=== PATIENT | female | born 1940 | race Caucasian/White ===

== ENCOUNTER → 2017-03-28 | Outpatient (REF) | payer OTHER ==
[~2017-03-28] MED LIST: /AMLO25TA PO; /ASCO250TA PO; ACET-654 PO; ALBU17IN INH; ALDA25TA2 PO; ASCO10003 PO; ASPI81TA85 PO; BISO10TA PO; BISO5TAB5 PO; CHLO25TA3 PO; COLA100C3 PO; DEMA1TAB4 PO; EXCETAB81 PO; FISHCAP PO; GABA-279 PO; GLUC1500 PO; LEVA250T PO; LEVA500T PO; LISI-542 PO; MILKSUS PO; MULTCAP8 PO; PANT40TA2 PO; PERCOCET PO; PRED10TA PO; PRED20TA PO; PRED50TA PO; PRED5SOL2 PO; PROA1AER INH; SUCR1SS PO; TORS20TA2 PO; TRAZ50TA2 PO; VITA400C29 PO; VITA500055 PO; VITMTA PO; VOLT1GEL2 TD; XARE20TA PO; mycostatin powder TOP
[2017-03-28 15:29] LABS: MEAN CORPUSCULAR HEMOGLOBIN 28.5 pg (27.0-33.0); MEAN CORPUSCULAR HGB CONC 28.6 g/dl (32.0-36.5); MEAN CORPUSCULAR VOLUME 99.6 fl (80.0-96.0); RED CELL DISTRIBUTION WIDTH 14.1 % (11.5-14.5); WHITE BLOOD COUNT 10.3 K/mm3 (4.0-10.0)
[2017-03-28 16:05] LABS: ALBUMIN 3.4 GM/DL (3.2-5.2); ANION GAP 5 MEQ/L (8-16); BLOOD UREA NITROGEN 18 MG/DL (7-18); CALCIUM LEVEL 8.4 MG/DL (8.8-10.2); CARBON DIOXIDE LEVEL 44 MEQ/L (21-32); CHLORIDE LEVEL 93 MEQ/L (98-107); CREATININE FOR GFR 0.92 MG/DL (0.55-1.02); GLOMERULAR FILTRATION RATE > 60.0 (>39); GLUCOSE, FASTING 118 MG/DL (83-110); PHOSPHORUS LEVEL 3.3 MG/DL (2.5-4.9); POTASSIUM SERUM 4.2 MEQ/L (3.5-5.1); SODIUM LEVEL 142 MEQ/L (136-145)
== END ==
LOC: M LAB REF 15:12
PROVIDERS: ATTEND Physician Assistant
DX: I48.2 Chronic atrial fibrillation (principal); I50.42 Chronic combined systolic (congestive) and diastolic (congestive) heart failure; Z51.81 Encounter for therapeutic drug level monitoring; Z79.01 Long term (current) use of anticoagulants

== ENCOUNTER → 2017-05-23 | Outpatient (REF) | payer OTHER ==
[~2017-05-23] MED LIST changes: -ACET-654 PO; +ACET1TAB17 PO; +ACET650T3 PO; -COLA100C3 PO; +COLA100C5 PO; +ENSU-12 PO; +IRON65TA PO; +LEVA1TAB PO; +LEVA1TAB2 PO; -LEVA250T PO; -LEVA500T PO; +NORC1TAB4 PO; +OMEP20CA3 PO; +OMEP40CA2 PO; -PROA1AER INH; +PROAAER10 INH; +SERT25TA PO; +SUCR1SUS PO; +VENTAER INH; +VITA100072 PO
[2017-05-23 15:21] LABS: MEAN CORPUSCULAR HEMOGLOBIN 27.6 pg (27.0-33.0); MEAN CORPUSCULAR HGB CONC 28.6 g/dl (32.0-36.5); MEAN CORPUSCULAR VOLUME 96.4 fl (80.0-96.0); RED CELL DISTRIBUTION WIDTH 15.2 % (11.5-14.5); WHITE BLOOD COUNT 9.5 K/mm3 (4.0-10.0)
[2017-05-23 15:36] LABS: ALBUMIN 3.2 GM/DL (3.2-5.2); ALBUMIN/GLOBULIN RATIO 0.86 (1.00-1.93); ALKALINE PHOSPHATASE 89 U/L (45-117); ALT/SGPT 25 U/L (12-78); AST/SGOT 20 U/L (15-37); BILIRUBIN,TOTAL 0.5 MG/DL (0.2-1.0); BLOOD UREA NITROGEN 14 MG/DL (7-18); CALCIUM LEVEL 8.9 MG/DL (8.8-10.2); CHLORIDE LEVEL 90 MEQ/L (98-107); CREATININE FOR GFR 0.82 MG/DL (0.55-1.02); FERRITIN 37 NG/ML (8-252); GLOMERULAR FILTRATION RATE > 60.0 (>39); GLUCOSE, FASTING 104 MG/DL (83-110); PERCENT SATURATION 11.8 % (13.2-37.4); POTASSIUM SERUM 4.3 MEQ/L (3.5-5.1); SODIUM LEVEL 143 MEQ/L (136-145); TOTAL IRON BINDING CAPACITY 425 UG/DL (250-450); TOTAL PROTEIN 6.9 GM/DL (6.4-8.2)
[2017-05-23 15:55] LABS: CARBON DIOXIDE LEVEL 54 MEQ/L (21-32)
== END ==
LOC: M SFHCLACO 14:47
PROVIDERS: ATTEND Physician Assistant
DX: D64.9 Anemia, unspecified (principal); I10 Essential (primary) hypertension; I48.2 Chronic atrial fibrillation; R60.9 Edema, unspecified
CPT/HCPCS: 80053; 82728; 83550; 85027; G0463

== ENCOUNTER → 2017-05-30 | Outpatient (REF) | payer OTHER ==
[2017-05-30 15:18] LABS: MEAN CORPUSCULAR HGB CONC 28.7 g/dl (32.0-36.5); MEAN CORPUSCULAR VOLUME 97.6 fl (80.0-96.0); RED CELL DISTRIBUTION WIDTH 16.4 % (11.5-14.5); WHITE BLOOD COUNT 7.8 K/mm3 (4.0-10.0)
[2017-05-30 15:30] LABS: PERCENT SATURATION 14.7 % (13.2-37.4)
== END ==
LOC: M SFHCLACO 10:25
PROVIDERS: ATTEND Physician Assistant
DX: I10 Essential (primary) hypertension (principal); D64.9 Anemia, unspecified; Z68.42 Body mass index [BMI] 45.0-49.9, adult

== ENCOUNTER 2017-08-01 08:35 | Emergency (ER) | payer OTHER ==
[~2017-08-01] VITALS: Ht 167.6 cm; Wt 137.0 kg
[~2017-08-01 08:35] MED LIST changes: -ACET650T3 PO; -ENSU-12 PO; -IRON65TA PO; -NORC1TAB4 PO; -OMEP20CA3 PO; -OMEP40CA2 PO; -SERT25TA PO; -SUCR1SUS PO; -VENTAER INH; -VITA100072 PO
[2017-08-01] MEDS ORDERED: OMEP40CA2 PO (08:56)
[2017-08-01] MEDS ORDERED: XARE20TA PO (08:56)
--- NOTE | 2017-08-01 10:12 | REP ---
Noncontrast head CT: History: History of a fall. Patient on Xarelto. Comparison CT study: July 29, 2016. CT findings: Preliminary digital scale expert radiograph is unremarkable. Bone window settings demonstrate an intact bony calvarium. No skull fracture is seen. Visualized paranasal sinuses are clear. No intraorbital abnormality is appreciated. There is mild to moderate vascular calcification in the distal carotid arteries bilaterally unchanged. There is no evidence of intracranial hemorrhage. Huddleston-white differentiation pattern is normal above and below the tentorium. The previously noted left anterior capsule lacune is again seen with some volume averaging. No new infarct is seen. No mass, extra-axial fluid collection or midline shift is seen. Impression: Vascular calcification and some small vessel changes. Old lacunar infarct in the anterior limb of the left internal capsule. No acute intracranial abnormality. Signed by Ramana Workman MD 08/01/2017 03:49 P
--- NOTE | 2017-08-01 10:38 | REP ---
Lumbar spine five views: Comparison is the CT of the abdomen and pelvis dated 07/21/2016. There is mild scoliosis convex right, unchanged. There are bilateral total hip arthroplasties, unchanged. Vertebral body heights and alignment are normal. This is unchanged. There is advanced degenerative disc disease at multiple levels from L2 through S1. This is unchanged. There is no spondylolysis or spondylolisthesis. There is moderate facet osteoarthritis. The pedicles and sacroiliac articulations are unremarkable. Impression: Scoliosis. Multilevel degenerative disc disease. No compression deformity or listhesis. Signed by Pardeep High MD 08/01/2017 10:28 A
[2017-08-01 11:44] VITALS: BP 121/70
[2017-08-01 11:59] VITALS: O2SAT 95
== END 2017-08-01 12:00 | disposition home or self-care (01) ==
LOC: EDBD 08:35 → M ED 08:35
DX: S20.229A Contusion of unspecified back wall of thorax, initial encounter (principal); W01.198A Fall on same level from slipping, tripping and stumbling with subsequent striking against other object, initial encounter; Y92.89 Other specified places as the place of occurrence of the external cause; Y93.89 Activity, other specified; Y99.8 Other external cause status; R26.9 Unspecified abnormalities of gait and mobility; I48.91 Unspecified atrial fibrillation; I10 Essential (primary) hypertension; E66.9 Obesity, unspecified; Z79.899 Other long term (current) drug therapy

== ENCOUNTER → 2017-08-08 | Outpatient (REF) | payer OTHER ==
[~2017-08-08] MED LIST changes: +ACET650T3 PO; +ENSU-12 PO; +IRON65TA PO; +NORC1TAB4 PO; +OMEP20CA3 PO; +OMEP40CA2 PO; +SERT25TA PO; +SUCR1SUS PO; +VENTAER INH; +VITA100072 PO
[2017-08-08 15:08] LABS: MEAN CORPUSCULAR HEMOGLOBIN 29.1 pg (27.0-33.0); MEAN CORPUSCULAR VOLUME 107.6 fl (80.0-96.0); RED CELL DISTRIBUTION WIDTH 14.8 % (11.5-14.5); WHITE BLOOD COUNT 7.5 10^3/uL (4.0-10.0)
[2017-08-08 15:35] LABS: BLOOD UREA NITROGEN 14 MG/DL (7-18); CALCIUM LEVEL 9.3 MG/DL (8.8-10.2); CHLORIDE LEVEL 90 MEQ/L (98-107); CREATININE FOR GFR 0.71 MG/DL (0.55-1.02); GLOMERULAR FILTRATION RATE > 60.0 (>39); GLUCOSE, FASTING 103 MG/DL (83-110); SODIUM LEVEL 144 MEQ/L (136-145)
[2017-08-08 16:05] LABS: ANION GAP 2 MEQ/L (8-16); CARBON DIOXIDE LEVEL 52 MEQ/L (21-32)
== END ==
LOC: M SFHCLACO 09:09
PROVIDERS: ATTEND Physician Assistant
DX: D64.9 Anemia, unspecified (principal); R09.02 Hypoxemia

== ENCOUNTER 2017-09-13 13:44 | Inpatient (IN) | payer OTHER ==
[~2017-09-13] VITALS: Ht 167.6 cm; Wt 124.0 kg
[~2017-09-13 13:44] MED LIST changes: -ACET650T3 PO; -ENSU-12 PO; -IRON65TA PO; -NORC1TAB4 PO; -OMEP20CA3 PO; -SERT25TA PO; -SUCR1SUS PO; -VENTAER INH; -VITA100072 PO
[2017-09-13 14:49] LABS: BASO % 0.3 % (0.0-1.0); EOS % 0.5 % (0.0-3.0); IMMATURE GRANULOCYTE % 1.8 % (0-0); LYMPH # 0.6 10^3/uL (1.5-4.5); LYMPH % 7.8 % (24.0-44.0); MEAN CORPUSCULAR HEMOGLOBIN 29.9 pg (27.0-33.0); MEAN CORPUSCULAR HGB CONC 27.1 g/dl (32.0-36.5); MEAN CORPUSCULAR VOLUME 110.5 fl (80.0-96.0); MONO # 0.4 10^3/uL (0.0-0.8); MONO % 4.7 % (0.0-5.0); NEUTROPHILS # 6.7 10^3/uL (1.8-7.7); NEUTROPHILS % 84.9 % (36.0-66.0); PLATELET COUNT, AUTOMATED 143 10^3/uL (150-450); RED CELL DISTRIBUTION WIDTH 13.6 % (11.5-14.5); WHITE BLOOD COUNT 7.9 10^3/uL (4.0-10.0)
--- NOTE | 2017-09-13 15:14 | REP ---
PORTABLE CHEST: AP portable view of the chest is performed and compared to multiple prior exams, most recently 07/30/2016. There is cardiomegaly and vascular congestion. There may be a mild amount of diffuse interstitial edema. There is calcification and tortuosity of the thoracic aorta. The mediastinal silhouette is unchanged. Signed by Pardeep Huddleston MD 09/14/2017 07:25 P
[2017-09-13 15:20] LABS: ALBUMIN 3.2 GM/DL (3.2-5.2); ALBUMIN/GLOBULIN RATIO 0.84 (1.00-1.93); ALKALINE PHOSPHATASE 95 U/L (45-117); ALT/SGPT 23 U/L (12-78); AST/SGOT 19 U/L (7-37); BILIRUBIN,DIRECT 0.2 MG/DL (0.0-0.2); BILIRUBIN,TOTAL 0.4 MG/DL (0.2-1.0); BLOOD UREA NITROGEN 15 MG/DL (7-18); CALCIUM LEVEL 8.9 MG/DL (8.8-10.2); CHLORIDE LEVEL 88 MEQ/L (98-107); CREATININE FOR GFR 0.62 MG/DL (0.55-1.02); GLOMERULAR FILTRATION RATE > 60.0 (>39); GLUCOSE, FASTING 126 MG/DL (83-110); POTASSIUM SERUM 4.1 MEQ/L (3.5-5.1); SODIUM LEVEL 143 MEQ/L (136-145)
--- NOTE | 2017-09-13 15:29 | REP ---
CT Head without contrast HISTORY: Altered mental status COMPARISON: 08/01/2017 Areas of decreased attenuation are present in the periventricular white matter. This represents small-vessel ischemic disease. The previously noted small left internal capsule lacunar infarction is not seen. There is no intraparenchymal hemorrhage, acute infarct, mass or midline shift. The ventricular system is normal in appearance. The cortical sulci at the vertex are dilated consistent with minimal volume loss. There is no extra cerebral collection. There is no fracture. The visualized sinuses are clear. IMPRESSION: 1. Small vessel ischemic disease. 2. Minimal volume loss. Signed by Gordon Muhammad MD 09/13/2017 03:20 P
[2017-09-13 15:33] LABS: CARBON DIOXIDE LEVEL 58 MEQ/L (21-32)
[2017-09-13] MEDS ORDERED: FUROSEMIDE 40 MG/4 ML VIAL (J1940) IV ONE (16:00)
[2017-09-13] MEDS ORDERED: GABA-279 PO (16:19)
[2017-09-13] MEDS ORDERED: OMEP20CA3 PO (16:19)
[2017-09-13] MEDS ORDERED: VENTAER INH (16:19)
[2017-09-13] MEDS ORDERED: NORC1TAB4 PO (16:24)
[2017-09-13] MEDS ORDERED: ACET650T3 PO (16:24)
[2017-09-13] MEDS ORDERED: VITA100072 PO (16:24)
[2017-09-13] MEDS ORDERED: IRON65TA PO (16:24)
[2017-09-13] MEDS ORDERED: SERT25TA PO (16:24)
[2017-09-13] MEDS ORDERED: SUCR1SUS PO (16:24)
[2017-09-13] MEDS ORDERED: ENSU-12 PO (16:24)
[2017-09-13 16:36] LABS: ABG BASE EXCESS 27.3 (-2.0-2.0); ABG HCO3 58.8 MEQ/L (22.0-26.0); ABG PARTIAL PRESSURE O2 62.2 mmHg (75.0-100.0); ABG STANDARD HCO3 52.4 MEQ/L (22.0-26.0); ABG TOTAL CO2 62.4 MEQ/L (23.0-31.0); ABG pH (ARTERIAL) 7.314 UNITS (7.350-7.450)
[2017-09-13 16:45] LABS: ABG PARTIAL PRESSURE CO2 118.3 mmHg (35.0-45.0)
[2017-09-13] MEDS ORDERED: LORazepam 2 MG/ML VIAL (J2060) As Ordered ONE (17:08)
[2017-09-13] MEDS ORDERED: ATROPINE SULFATE 1% OP SOLN 2 ML BTL SL PRN (17:45)
[2017-09-13] MEDS ORDERED: SCOPOLAMINE 1.5 MG TRANSDERMAL TD PRN (17:45)
--- NOTE | 2017-09-13 17:49 | IPN ---
INPATIENT PROGRESS NOTE 09/13/2017 The patient had a seizure with subsequent respiratory arrest and cardiac arrest at 5:20 p.m. on 09/13/2017. This is a 77-year-old female with a history of atrial fibrillation, congestive heart failure (CHF), systolic dysfunction, follows with Dr. Barrera, chronic hypoxic respiratory failure on six liters of oxygen, morbid obesity complicating acute issues, severe systolic dysfunction with global hypokinesis with abnormal EKG, chronic left axis deviation, diverticulosis, history of upper gastrointestinal (GI) bleed, hypertension, chronic obstructive pulmonary disease (COPD), pulmonary hypertension, chronic right heart failure who was brought in by family today when the patient was found unresponsive for about 15 minutes with her eyes open at breakfast with worsening shortness of breath despite six liters of oxygen. The patient was found to have severe hypoxia on arrival with saturation of 84% on six liters. Evaluation included chest x-ray which showed vascular congestion and interstitial edema. The patient was given intravenous Lasix. EKG showed atrial fibrillation. Cardiac markers were negative with troponin at less than 0.02. Arterial blood gas showed a carbon dioxide (CO2 ) level of 118, pH of 7.314. CT of the head was unremarkable and showed small vessel ischemic disease and minimal volume loss. Glucose level was 126. At 1705, registered nurse (RN) had seen the patient while she was able to get up to the commode with daughter's assistance and was urinating when she then had a seizure episode. She was then found to have an apneic episode and then rapidly seized with tonic-clonic activity with the nurse present at the bedside. She was given Ativan 1 mg and then developed respiratory arrest and subsequently followed by a cardiac arrest. Cardiopulmonary resuscitation (CPR) was started until the patient's daughter was asked to confirm the patient's DO NOT RESUSCITATE/DO NOT INTUBATE status. According to the patient's prior wishes of no heroic measures, no CPR and no ventilation, resuscitative efforts were discontinued. The patient was DO NOT RESUSCITATE/DO NOT INTUBATE code status. The patient's wishes were followed according to documented wishes.She is admitted for comfort measures only. Patient's family are at the bedside. LABORATORY DATA: White count 7.9, hemoglobin 10.5, hematocrit 38.8, platelet count 143, 84% neutrophils. Sodium 143, potassium 4.1, chloride 88, bicarbonate 58, BUN 15, creatinine 0.62, glucose 126, lactic acid 1.5, calcium 8.9, total bilirubin 0.4, direct bilirubin 0.2, AST 19, ALT 23, alkaline phosphatase 95, total CK of 20, MB fraction 1.1, relative index 5.5, troponin less than 0.02, total protein 7, albumin 3.2, TSH of 2.56. Arterial blood gas shows pH 7.314, CO2 118, O2 62.2. Repeat ABG 7.0, co2 192. edited: 09/14/2017 1115 tkf MTDD
[2017-09-13 18:00] LABS: ABG BASE EXCESS 21.1 (-2.0-2.0); ABG HCO3 57.4 MEQ/L (22.0-26.0); ABG PARTIAL PRESSURE O2 64.9 mmHg (75.0-100.0); ABG STANDARD HCO3 45.2 MEQ/L (22.0-26.0); ABG TOTAL CO2 63.3 MEQ/L (23.0-31.0)
[2017-09-13 18:02] LABS: ABG pH (ARTERIAL) 7.092 UNITS (7.350-7.450)
[2017-09-13 18:03] LABS: ABG PARTIAL PRESSURE CO2 192.7 mmHg (35.0-45.0)
[2017-09-13 18:07] LABS: BASO # 0.1 10^3/uL (0.0-0.2); BASO % 0.7 % (0.0-1.0); EOS # 0.1 10^3/uL (0.0-0.50); EOS % 0.4 % (0.0-3.0); IMMATURE GRANULOCYTE % 4.2 % (0-0); LYMPH # 1.6 10^3/uL (1.5-4.5); LYMPH % 11.1 % (24.0-44.0); MEAN CORPUSCULAR HEMOGLOBIN 30.5 pg (27.0-33.0); MEAN CORPUSCULAR HGB CONC 27.3 g/dl (32.0-36.5); MEAN CORPUSCULAR VOLUME 111.5 fl (80.0-96.0); MONO # 0.9 10^3/uL (0.0-0.8); NEUTROPHILS # 11.3 10^3/uL (1.8-7.7); NEUTROPHILS % 77.6 % (36.0-66.0); PLATELET COUNT, AUTOMATED 215 10^3/uL (150-450); RED CELL DISTRIBUTION WIDTH 13.4 % (11.5-14.5); WHITE BLOOD COUNT 14.6 10^3/uL (4.0-10.0)
[2017-09-13 18:18] LABS: INR 1.06
[2017-09-13 18:40] LABS: ALBUMIN 3.2 GM/DL (3.2-5.2); ALBUMIN/GLOBULIN RATIO 0.82 (1.00-1.93); ALKALINE PHOSPHATASE 98 U/L (45-117); ALT/SGPT 50 U/L (12-78); AST/SGOT 55 U/L (7-37); BILIRUBIN,TOTAL 0.5 MG/DL (0.2-1.0); BLOOD UREA NITROGEN 16 MG/DL (7-18); CALCIUM LEVEL 8.7 MG/DL (8.8-10.2); CHLORIDE LEVEL 88 MEQ/L (98-107); CREATININE FOR GFR 0.98 MG/DL (0.55-1.02); GLOMERULAR FILTRATION RATE 58.4 (>39); GLUCOSE, FASTING 239 MG/DL (83-110); POTASSIUM SERUM 4.1 MEQ/L (3.5-5.1); SODIUM LEVEL 142 MEQ/L (136-145); TOTAL PROTEIN 7.1 GM/DL (6.4-8.2)
[2017-09-13 18:55] LABS: ANION GAP 6 MEQ/L (8-16); CARBON DIOXIDE LEVEL 48 MEQ/L (21-32)
[2017-09-13] MEDS: LORazepam 2 MG/ML VIAL (J2060) IV PRN ×3 (20:11→23:31)
--- NOTE | 2017-09-13 20:32 | IPN ---
DATE: 09/13/2017 TIME OF EVENT: Roughly at 5:09 p.m. PRIMARY CARE PROVIDER: ELIE Birmingham CHIEF COMPLAINT: Shortness of breath with confusion and also congestive heart failure (CHF) exacerbation. Brief note: A 77-year-old female with past medical history of paroxysmal atrial fibrillation on Xarelto, heart failure, chronic obstructive pulmonary disease (COPD), 6 liters nasal cannula oxygen at home, hypertension, presented with shortness of breath and patient's hospitalist team has been consulted to come to evaluate patient for admission; however, during the process , patient had a seizure while patient was on commode, Ativan 1mg was given, a few minutes later she started agonal breathing, her pulses were checked and her pulses were not palpable at two different sites. She was immediately moved back into her bed from the commode, and pulses were rechecked at several locations, both at her carotids and femoral and there was no pulse; therefore with family present, a code was called and cardiopulmonary resuscitation was started for a brief moment, but it was found that patient was DO NOT RESUSCITATE/DO NOT INTUBATE, therefore CRP was stopped immediately. Patient's daughter was present during the process and, at this point, to honor patient's wishes written on MOLST form, cardiopulmonary resuscitation was stopped completely and pulses were recheck and they were still nonpalpable. At this point, patient is on nonrebreather and waiting for her son to arrive. Before monitor was turned off, she was already becoming bradycardic and she was still in agonal breathing. After updated patient's daughter the situation patient was kept comfort measure only. Patient has been discussed with attending doctor, Dr. Anderson. My preceptor for this patient encounter was Dr. Prabha Anderson. The preceptor was physically present in the building during the encounter and was fully available as needed. All aspects of the patient interview, examination, medical decision-making process, and medical care plan development were reviewed and approved by the preceptor. The preceptor is aware and concurs with the plan as stated in the body of this note and will attest to such by his/her co-signature. ANASTASIIA
--- NOTE | 2017-09-13 21:25 | HPE ---
DATE OF ADMISSION: 09/13/2017 CHIEF COMPLAINT: Shortness of breath and unresponsiveness. PRIMARY CARE PHYSICIAN: ELIE Birmingham HOSPITALIST: Dr. Moisés Cuevas HISTORY OF PRESENT ILLNESS: Unable to obtained as this patient is having a seizure and has subsequent cardiopulmonary arrest at the bedside. History is obtained from medical records and patient's daughter. A 77-year-old female with history of systolic congestive heart failure, chronic obstructive pulmonary disease (COPD), chronic hypoxic respiratory failure on 2 liters of supplement oxygen, hypertension, paroxysmal atrial fibrillation on chronic Xarelto, morbid obesity, body mass index (BMI) 44.1 complicating acute issues, chronic hypercarbia, bilateral hip replacements, prior history of gastrointestinal (GI) bleed, diverticular disease, DO NOT RESUSCITATE/DO NOT INTUBATE, was brought in by ambulance after being found unresponsive at breakfast this morning. Patient has been in her usual state of health and was in the car, going around [place] yesterday with son-in-law and the daughter. She has had increasing shortness of breath for the past couple of days and was found unresponsive for about 15 minutes with her eyes open at home. In the emergency room, she was lethargic and was found to have a CO2 level of 118, pH was 7.314. She was awake, alert to her name only. She was found to be in congestive heart failure with cardiomegaly and increase pulmonary vascular congestion on chest x-ray, with a CT of the head being negative, with small vessel ischemic disease, minimal volume loss. Glucose level was normal at 126. Hospitalist service was called for admission for congestive heart failure. She was given one dose of Lasix [address] Guerra, emergency room physician. While the patient was sitting on the toilet urinating, with the patient present at the bedside, she had an episode of seizure. Patient was found to have no pulse. After the nurses arrived at the bedside and cardiopulmonary resuscitation (CPR) was started. According to her Medical Orders for Life-Sustaining Treatment (MOLST) form, patient is DO NOT RESUSCITATE/DO NOT INTUBATE, and CPR was discontinued. She was transferred to room 2 in the critical care area of the emergency room, at which point we confirmed with the daughter that she is DO NOT RESUSCITATE/DO NOT INTUBATE. Repeat blood gases showed a pH of 7.0 and a CO2 level of 192. Patient remained unresponsive and was kept on comfort measures only. Family at the bedside were in agreement to admit her for comfort measures and to keep her on as needed Ativan and morphine for pain. PAST MEDICAL HISTORY: 1. Paroxysmal atrial fibrillation. 2. Systolic congestive heart failure with moderate global hypokinesis. 3. Moderate pulmonary hypertension. 4. Biatrial enlargement. 5. Tachycardia-induced cardiomyopathy. 6. Chronic obstructive pulmonary disease (COPD). 7. Chronic hypercarbia. 8. Chronic hypoxic respiratory failure on 6 liters of oxygen at home. 9. Hypertension. 10. Morbid obesity, body mass index (BMI) 44.1. 11. Gastrointestinal (GI) bleed. PAST SURGICAL HISTORY: 1. Bilateral hip replacements. 2. Tonsillectomy. SOCIAL HISTORY: Lives with daughter, healthcare proxy. DO NOT RESUSCITATE/DO NOT INTUBATE. Denies active tobacco use or alcohol abuse. FAMILY HISTORY: Both parents . Noncontributory due to age. ALLERGIES: No known drug allergies. HOME MEDICATIONS: - acetaminophen 650 mg every 8 hours - [place] 5/325 mg every 6 hours as needed - albuterol two puffs every 6 hours as needed - bisoprolol 5 mg daily - vitamin B12 1000 mcg daily - Colace 100 mg twice a day - gabapentin 100 mg three times a day - iron 325 mg at bedtime - multivitamin one tablet at bedtime - omeprazole 20 mg daily - Xarelto 10 mg at bedtime - sertraline 25 mg at bedtime - spironolactone 25 mg daily - Carafate 1 gram three times a day - torsemide 20 mg twice a day - vitamin D3 5000 units at bedtime - Ensure one daily REVIEW OF SYSTEMS: Could not be obtained as patient is obtunded. PHYSICAL EXAMINATION: Temperature 97.7, pulse 96, respiratory 18, blood pressure 154/64, 94% on 6 liters nasal cannula, currently on nonrebreather, 15 liters of oxygen. GENERAL: Patient is cyanotic, obtunded, unresponsive. Does not respond to sternal rub. No decerebrate or decorticate posturing. Does not follow commands. LUNGS: Diminished with rales bilaterally. HEART: S1, S2. Irregularly irregular. ABDOMEN: Obese, soft, nontender, nondistended. EXTREMITIES: Cyanosis of toes and fingers. Cool to touch. Diminished pulses. LABORATORY DATA: <<8:02>> blood gas: pH 7.092, CO2 192, O2 64, bicarbonate 57. White count 14.6, hemoglobin 10, hematocrit 37, platelet count 215. Sodium 142, potassium 4.1, chloride 88, bicarbonate 58, BUN 15, creatinine 0.62, glucose 126. Initial lactic acid of 1429, with 1.5. Lactic acid 7.5 after attempted CPR, calcium 8.9. Total bilirubin 0.4, direct bilirubin 0.2, AST 19, ALT 20, alkaline phosphatase 95. Total CK 20. MB fraction 1.1. Troponin less than 0.02. Total protein 7, albumin 3.2. Thyroid stimulating hormone (TSH) 2.56. Two sets of blood cultures are pending. Chest x-ray: Cardiomegaly and vascular congestion. There is a mild amount of diffuse interstitial edema. Calcification and tortuosity of the thoracic aorta. Mediastinal silhouette is unchanged. CT of the head shows minimal small vessel ischemic disease, minimal volume loss. ASSESSMENT AND PLAN: This is a 77-year-old female with history of systolic congestive heart failure, with moderately severe global hyperkinesis on echocardiogram on 07/30/2016, moderate pulmonary hypertension, chronic obstructive pulmonary disease (COPD), chronic hypercarbic respiratory failure on 6 liters of oxygen at home, morbid obesity, body mass index (BMI) of 44, paroxysmal atrial fibrillation on chronic Xarelto, presented to the emergency room, brought in by ambulance after being found unresponsive with her eyes open at home. Patient was found to have congestive heart failure, acute on chronic exacerbation, with hypercarbia, with CO2 level of 118. During the hospital admission, patient had a seizure in the emergency room and subsequently suffered from a respiratory arrest and lost her pulses, with a subsequent cardiac arrest. Patient is DO NOT RESUSCITATE/DO NOT INTUBATE after cardiopulmonary resuscitation ( CPR) for two minutes and transferred to critical care, room number 2 in the emergency room. Resuscitative efforts were discontinued after confirming with the daughter that the patient is DO NOT RESUSCITATE/DO NOT INTUBATE. Patient will be admitted as comfort measures only and downgraded to medical/surgical floor and will be assigned to Dr. Moisés Cuevas at 10:00 p.m. on 09/13/2017 for the following issues: 1. Acute on chronic congestive heart failure with moderately severe systolic dysfunction. Patient had been given intravenous Lasix times one with good diuresis. Patient then arrested due to CO2 retention and severe hypercarbia and subsequent cardiopulmonary arrest. She is currently comfort measures only. Medications have been discontinued. She is nothing by mouth status and she is unresponsive. 2. Cardiopulmonary arrest status post seizure activity from hypercarbia. Patient is DO NOT RESUSCITATE/DO NOT INTUBATE. Resuscitative efforts were done for two minutes until her DO NOT RESUSCITATE status was confirmed with the patient's daughter at the bedside. Patient is currently comfort measures only. 3. Severe hypercarbia and hypercapnic respiratory failure, with severe respiratory acidosis with a pH of 7.0 and CO2 of 192. This was likely secondary to respiratory arrest from congestive heart failure with subsequent CO2 retention. Patient is DO NOT INTUBATE and could not be resuscitated despite full efforts. She remains comfort measures only with patient's family at the bedside. 4. Acute metabolic encephalopathy secondary to respiratory acidosis, congestive heart failure, cardiac arrest. Currently comfort measures only. 5. History of paroxysmal atrial fibrillation. Still with atrial fibrillation with controlled rate. Currently, no further management, as the patient is comfort measures only. 6. Hypertension. Comfort measures only. 7. Morbid obesity. Complicating acute issues. 8. Chronic hypoxic respiratory failure. Patient is currently <<13:44>> cardiopulmonary arrest. She is DO NOT RESUSCITATE/DO NOT INTUBATE. No further laboratory data or further efforts. 9. CODE STATUS: DO NOT RESUSCITATE/DO NOT INTUBATE. 10. Hospice will be consulted. Patient's family is present at the bedside. Patient will be assigned to Dr. Moisés Cuevas at 10:00 p.m. on 09/13/2017.
[2017-09-13] MEDS: MORPHINE 2 MG/ML 1ML SYRINGE IV PRN (22:04)
[2017-09-13 22:43] VITALS: BP 137/58
[2017-09-14] MEDS ORDERED: FUROSEMIDE 40 MG/4 ML VIAL (J1940) IV SCH
[2017-09-14] MEDS: MORPHINE 2 MG/ML 1ML SYRINGE IV PRN ×6 (00:33→22:09)
[2017-09-14] MEDS: LORazepam 2 MG/ML VIAL (J2060) IV PRN ×2 (06:43→11:22)
[2017-09-14] MEDS: NYSTATIN 100,000 UNITS/GM TOPICAL PWD 15 GM TOP SCH ×2 (08:52→20:59)
[2017-09-14] MEDS ORDERED: SPIRONOLACTONE 25 MG TAB PO SCH (09:00)
--- NOTE | 2017-09-14 11:24 | ECGEPIP ---
Stationary ECG Study [facility] - ED Test Date: 2017-09-13 Pat Name: STEVAN SMITH Department: Room: [place] [address] Gender: F [employer] Fire[employer]: tisha : 1940 Requested By: Yudy Aldridge Order Number: [id number] Reading MD: Yudy Aldridge Measurements Intervals [place] Rate: 80 P: [place]: 0 QRS: -22 QRSD: 111 T: -5 QT: 380 QTc: 439 Interpretive Statements ATRIAL FIBRILLATION MODERATE INTRAVENTRICULAR CONDUCTION DELAY NONSPECIFIC T-WAVE ABNORMALITY DECREASED RATE 07/30/16 Electronically Signed On 09-14-2017 11:24:28 EDT by Yudy Aldridge
[2017-09-15] MEDS: MORPHINE 2 MG/ML 1ML SYRINGE IV PRN (00:26)
[2017-09-15] MEDS ORDERED: MORPHINE 10MG/0.5ML ORAL CONCENTRATE SOLUTION U/D SL PRN (01:00)
[2017-09-15] MEDS ORDERED: LORazepam 1 MG TAB PO PRN (01:00)
--- NOTE | 2017-10-10 12:10 | DSES ---
DATE OF ADMISSION: 09/13/2017 DATE OF DISCHARGE: 09/15/2017 ATTENDING PHYSICIAN: Dr. Anderson. FINAL DIAGNOSIS: Comfort measures only due to cardiopulmonary arrest at 5:20 p.m. on 09/13/2017 after a seizure and the patient on 09/15/2017. DISCHARGE DIAGNOSIS: Patient due to patient was admitted for comfort measures only for cardiopulmonary arrest from a seizure. CONSULTANTS: None. PROCEDURES AND IMAGING: Patient had a CT of the head on 09/13/2017 showing small vessel ischemic disease and minimal volume loss. On 09/13/2017, patient also had a portable chest x-ray showing there was cardiomegaly and vascular congestion, mild amount of diffuse interstitial edema, calcification and tortuosity in the thoracic aorta. Mediastinal silhouette was unchanged. HISTORY OF PRESENT ILLNESS: Attending physician was unable to obtain the history of present illness due to patient was having seizure during the time patient was seen and subsequently had cardiopulmonary arrest at the bedside. History was obtained from patient's daughter and she had a history of congestive heart failure, chronic obstructive pulmonary disease (COPD), chronic hypoxic respiratory failure on 2 liters of supplementary oxygen, hypertension, paroxysmal atrial fibrillation on chronic Xarelto, morbid obesity, body mass index (BMI) was 44.1 complicating the acuity issues, chronic hypercapnic bilateral hip replacement, prior history of gastrointestinal (GI) bleed, diverticular disease, and she was DO NOT RESUSCITATE/DO NOT INTUBATE at the time she was seen in emergency room. Patient was in her usual state of health the day prior where she was going around [place] with son-in-law and daughter. She has increased shortness of breath for the past couple of days, however, and was found to be unresponsive for roughly 15 minutes with her eyes open when she was at home. In the emergency room, she was very lethargic and found to have CO2 level of 118 and pH of 7.314. She was initially awake, alert to her name only and she was found to be in congestive heart failure with cardiomegaly and increase in pulmonary vascular congestion on the chest x-ray. CT of the head was negative with small vessel ischemic disease and minimal volume loss. Glucose level was found to be 126. Hospitalist service was called for admission for congestive heart failure. She was given initially a dose of Lasix 40 mg by emergency room physician. While patient was sitting on the toilet urinating in the ER with patient's daughter at bedside, she had episode of seizure. Patient was found to have no pulse after nurse arrived at the bedside and cardiopulmonary resuscitation was initially started. However, she was found to be DO NOT RESUSCITATE/DO NOT INTUBATE on the Medical orders for life sustaining treatment (MOLST) form, therefore cardiopulmonary resuscitation was stopped and she was transferred to room 2 in the critical care area in the emergency room. At this point, patient's daughter also confirmed that patient was DO NOT RESUSCITATE/DO NOT INTUBATE. Repeat blood gas showed a pH of 7, CO2 level was 192 and patient was unresponsive, therefore patient has been admitted for comfort measures only and patient was given Ativan and morphine as needed and 2 days later on 09/15/2017, patient . Patient has been discussed with attending doctor, Dr. Anderson.
== END 2017-09-15 01:05 | disposition expired | DRG 291 ==
LOC: EDSEX 13:44 → M ED 13:44 → EDBD 13:44 → M ED INP 16:13 → M MS5PR 09-14
PROVIDERS: ADMIT General Practice; ATTEND General Practice
DX: I11.0 Hypertensive heart disease with heart failure (principal); G93.41 Metabolic encephalopathy; J96.22 Acute and chronic respiratory failure with hypercapnia; Z68.41 Body mass index [BMI] 40.0-44.9, adult; E87.2 Acidosis; I46.9 Cardiac arrest, cause unspecified; E66.01 Morbid (severe) obesity due to excess calories; Z66 Do not resuscitate; Z51.5 Encounter for palliative care; I48.0 Paroxysmal atrial fibrillation; I27.20 Pulmonary hypertension, unspecified; Z96.641 Presence of right artificial hip joint; Z96.642 Presence of left artificial hip joint; I50.21 Acute systolic (congestive) heart failure; J44.9 Chronic obstructive pulmonary disease, unspecified; Z79.899 Other long term (current) drug therapy